=== PATIENT | male | born 1990 | race African-American/Black ===

== ENCOUNTER 2018-02-02 11:19 | Emergency (ER) | payer BC, OTHER ==
[~2018-02-02] VITALS: Ht 177.8 cm; Wt 86.2 kg
[2018-02-02 11:18] VITALS: BP 160/109
[~2018-02-02 11:19] MED LIST: NORCO 5-325 TA1 EACH ORAL; ZOFRAN ODT4 MG ORAL
[2018-02-02] MEDS ORDERED: LORazepam Inj 2mg/ml 1ml IM ONE (11:45)
[2018-02-02 12:08] VITALS: BP 155/98
--- NOTE | 2018-02-03 06:42 | Emergency Room Report ---
History of Present Illness General Chief Complaint: General Complaint Source: Patient Present Illness HPI 27-year-old male presents to ED for evaluation. Patient brought in by EMS. States that he used crystal meth today and his heart is racing. Denies chest pain or shortness of breath. Patient is anxious asking for "IV meds". Denies any other drug use. Denies hearing voices. Denies suicidal or homicidal ideation. No other aggravating relieving factors. Denies any other associated symptoms Allergies: Coded Allergies: No Known Allergies (Unverified , 04/08/14) Patient History Past Medical History: HTN, seizures Past Surgical History: none Pertinent Family History: none Social History: Reports: drug use; Denies: smoking, alcohol use Immunizations: UTD Reviewed Nursing Documentation: PMH: Agreed; PSxH: Agreed Nursing Documentation-PMH Past Medical History: No History, Except For Hx Hypertension: Yes Hx Seizures: Yes Review of Systems All Other Systems: negative except mentioned in HPI Physical Exam Vital Signs Date Time Temp Pulse Resp B/P (MAP) Pulse Ox O2 Delivery O2 Flow Rate FiO2 02/02/18 11:13 212.0 100.0 02/02/18 11:13 110 22 160/109 100 Room Air Sp02 EP Interpretation: reviewed, normal General Appearance: no apparent distress, alert, GCS 15, non-toxic Head: normocephalic Eyes: bilateral eye normal inspection, bilateral eye PERRL ENT: normal ENT inspection Neck: normal inspection Respiratory: chest non-tender, lungs clear, normal breath sounds, speaking full sentences Cardiovascular #1: no edema, tachycardia Gastrointestinal: normal inspection Rectal: deferred Genitourinary: no CVA tenderness Musculoskeletal: normal inspection Neurologic: alert, oriented x3, responsive, motor strength/tone normal, sensory intact, speech normal Psychiatric: no suicidal/homicidal ideation, no delusions, anxious Skin: normal inspection Lymphatic: normal inspection Medical Decision Making Diagnostic Impression: Primary Impression: Methamphetamine abuse ER Course Hospital Course 27-year-old male presents ED stating he used meth needs IV meds to relax Differential diagnoses include: psychosis, substance abuse, ETOH Clinical course Patient placed on stretcher. After initial history, who exam reveals young male in no acute distress. Appears anxious. Pacing in the ER. We asked patient multiple times to sit in chair. Immediately upon arrival patient is requesting medical attention. On evaluation patient is not reporting any chest pain or shortness of breath. Diaphoretic. Vital stable. Nontoxic-appearing. No SI or HI. No danger to self or others Patient given IM Ativan here. On reassessment patient appears more relaxed. Is requesting discharge at this time. Instructed on the dangers of methamphetamine use I. I feel this is a highly complex case requiring extensive working including EKG/Rhythm strip, Xray/CT/US, Blood/urine lab work, repeat exams while in ED, and administration of strong opiates/narcotics for pain control, admission to hospital or close patient follow up. Diagnosis - methamphetamine abuse Stable and discharged to home. Instructed to followup with PMD. Return to ED if symptoms recur or worsen Last Vital Signs Date Time Temp Pulse Resp B/P (MAP) Pulse Ox O2 Delivery O2 Flow Rate FiO2 02/02/18 12:08 98.8 99 22 155/98 100 Room Air 100.0 Status: improved Disposition: HOME, SELF-CARE Condition: Stable Referrals: [facility]ERR[facility] (PCP) Patient Instructions: Substance Use Disorder Jamar Galvan MD Feb 03, 2018 06:42
== END 2018-02-02 12:08 | disposition home or self-care (01) ==
LOC: EDBD 11:19 → EMR 11:57
DX: F15.10 Other stimulant abuse, uncomplicated (principal); I10 Essential (primary) hypertension
CPT/HCPCS: 96372; 99283

== ENCOUNTER 2018-02-09 03:02 | Emergency (ER) | payer OTHER ==
[~2018-02-09] VITALS: Ht 180.3 cm; Wt 86.2 kg
--- NOTE | 2018-02-09 03:17 | Emergency Room Report ---
History of Present Illness General Chief Complaint: To Be Triaged Source: Patient Present Illness HPI Is a 27-year-old male with a history of cocaine and methamphetamine abuse. Initially he denied it. He presents with chief complaint of "not feeling good. ". He said he is having a nervous breakdown. No suicidal thoughts or homicidal thought. No nausea no vomiting. No fever chills. No hallucination or delusion. He admits to using both drugs earlier today. Allergies: Coded Allergies: No Known Allergies (Unverified , 04/08/14) Patient History Past Medical History: see triage record, old chart reviewed Past Surgical History: other Pertinent Family History: none Social History: Denies: smoking Immunizations: other Reviewed Nursing Documentation: PMH: Agreed; PSxH: Agreed Nursing Documentation-PMH Past Medical History: No Stated History Hx Hypertension: Yes Hx Seizures: Yes Review of Systems Eye: Denies: eye pain, blurred vision ENT: Denies: ear pain, nose congestion, throat swelling Respiratory: Denies: cough, shortness of breath Cardiovascular: Denies: chest pain, palpitations Gastrointestinal: Denies: abdominal pain, diarrhea, nausea, vomiting Musculoskeletal: Denies: back pain, joint pain Skin: Denies: rash Neurological: Denies: headache, numbness Endocrine: Denies: increased thirst, increased urine Hematologic/Lymphatic: Denies: easy bruising All Other Systems: negative except mentioned in HPI Physical Exam Vital Signs Date Time Temp Pulse Resp B/P (MAP) Pulse Ox O2 Delivery O2 Flow Rate FiO2 02/09/18 02:55 99.1 139 14 153/109 99 Room Air 99.1 vitals with tachycardia and high blood pressure Sp02 EP Interpretation: reviewed, normal General Appearance: well appearing, no apparent distress, alert Head: normocephalic, atraumatic Eyes: bilateral eye PERRL, bilateral eye EOMI ENT: hearing grossly normal, normal pharynx Neck: full range of motion, supple, no meningismus Respiratory: chest non-tender, lungs clear, normal breath sounds Cardiovascular #1: regular rate, rhythm, no murmur, tachycardia - heart rate 120 Gastrointestinal: normal bowel sounds, non tender, no mass, no organomegaly, no bruit, non-distended Musculoskeletal: back normal, gait/station normal, normal range of motion Neurologic: alert, oriented x3 Psychiatric: mood/affect normal Skin: warm/dry Medical Decision Making Diagnostic Impression: Primary Impression: Methamphetamine abuse Additional Impressions: Cocaine abuse Anxiety ER Course Patient with anxiety secondary to drug abuse. No evidence of ACS, PE, dissection to name a few. Symptom is improve after Ativan. No criteria for 5150. This patient is a chronic risk of self injury due to poor impulse control, limited coping skills, and judgment intermittently impaired by intoxication. I believe that the available clinical evidence to suggest that these characteristics derived primarily from personality disorder and are likely very stable over time. Hospitalization would likely attenuate risk of self-harm only during nursing home period, without lasting risk reduction. Serious self-harm , while possible, would likely be inadvertent, and because of impulsivity, and foreseeable. For these reasons, I do not believe hospitalization would provide meaningful reduction in risk of self-harm. Last Vital Signs Date Time Temp Pulse Resp B/P (MAP) Pulse Ox O2 Delivery O2 Flow Rate FiO2 02/09/18 02:55 99.1 139 14 153/109 99 Room Air 99.1 Status: improved Disposition: HOME, SELF-CARE Condition: Stable Additional Instructions: Stop using drugs. Follow-up with rehabilitation. Follow-up with your doctor in 7 days. Return if worse. James Rivera MD Feb 09, 2018 03:17
[2018-02-09] MEDS ORDERED: LORazepam Inj 2mg/ml 1ml IM ONE (03:30)
[2018-02-09 03:39] VITALS: BP 154/105
[2018-02-09 04:25] VITALS: BP 145/98
== END 2018-02-09 04:25 | disposition home or self-care (01) ==
LOC: EDBD 03:02 → EMR 03:58
DX: F15.10 Other stimulant abuse, uncomplicated (principal); F14.10 Cocaine abuse, uncomplicated; F41.9 Anxiety disorder, unspecified
CPT/HCPCS: 96372; 99283